=== PATIENT | male | born 1940 | race Caucasian/White ===

== ENCOUNTER → 2017-01-24 11:15 | Outpatient (CLI) | payer MEDICARE, OTHER ==
[2015-08-07 06:43] VITALS: BMI 26.7
[~2017-01-24 11:15] MED LIST: DIOVAN80 MG PO; HYDROCODON-ACE1 EAC7 PO; ZYLOPRIM300 MG PO
== END | disposition home or self-care (01) ==
LOC: D.MRI 11:15
DX: R42 Dizziness and giddiness (principal)

== ENCOUNTER → 2017-03-15 08:24 | Outpatient (CLI) | payer MEDICARE, OTHER ==
[2015-08-07 06:43] VITALS: BMI 26.7
== END | disposition home or self-care (01) ==
LOC: D.US 08:24
DX: I71.4 Abdominal aortic aneurysm, without rupture (principal); I65.23 Occlusion and stenosis of bilateral carotid arteries

== ENCOUNTER 2017-08-25 18:35 | Inpatient (IN) | payer MEDICARE, OTHER ==
[~2017-08-25] VITALS: Ht 177.8 cm; Wt 79.1 kg
[2017-08-25] MEDS ORDERED: HYDROCODON-ACE1 EAC9 PO (18:43)
[2017-08-25] MEDS ORDERED: PERCOCET 10/3251 TA1 PO (18:44)
[2017-08-25] MEDS ORDERED: CATAPRES0.1 MG PO (18:44)
[2017-08-25] MEDS ORDERED: BENICAR40 MG PO (18:44)
[2017-08-25] MEDS ORDERED: FLOMAX0.4 MG PO (18:44)
[2017-08-25] MEDS ORDERED: RESTORIL15 MG PO (18:44)
[2017-08-25 19:32] LABS: BASOPHILS 0.4 % (0-2); EOSINOPHILS 3.1 % (0-7); HEMATOCRIT 39.5 % (42.0-54.0); HEMOGLOBIN 13.4 g/dL (13.5-17.5); IMMATURE GRANULOCYTES 0.3 % (0-5); LYMPHOCYTES 8.5 % (15-50); MCH 35.1 pg (26.0-34.0); MCHC 33.9 g/dL (31.0-37.0); MCV 103.4 fL (80.0-100.0); MEAN PLATELET VOLUME 10.4 fL (7.4-10.4); NEUTROPHILS 74.7 % (40-80); RBC 3.82 10x6/uL (4.20-6.10); RDW 12.2 % (11.5-14.5); WBC 7.9 10x3/uL (4.8-10.8)
[2017-08-25 19:52] LABS: APPEARANCE CLEAR (CLEAR); BILIRUBIN NEGATIVE (NEGATIVE); COLOR DK YELLOW (YELLOW); GLUCOSE NEGATIVE (NEGATIVE); KETONE NEGATIVE (NEGATIVE); NITRITE NEGATIVE (NEGATIVE); PROTEIN NEGATIVE (NEGATIVE); UROBILINOGEN NORMAL (NORMAL)
[2017-08-25 19:54] LABS: AMORPHOUS SEDIMENT <1+ /lpf (NONE SEEN); BACTERIA FEW /hpf (NONE SEEN); RED CELLS - URINE 0-5 /hpf (0-5); WHITE CELLS - URINE 0-5 /hpf (0-5)
[2017-08-25 19:55] LABS: ALBUMIN 3.2 g/dL (3.4-5.0); ALKALINE PHOSPHATASE 68 U/L (46-116); ALT (SGPT) 22 U/L (10-68); AMYLASE - SERUM 52 U/L (25-115); BILIRUBIN - TOTAL 1.24 mg/dL (0.2-1.3); CALC OSMOLALITY 273 mosm/kg (275-300); CARBON DIOXIDE 26.3 mmol/L (21.0-32.0); CHLORIDE - SERUM 102 mmol/L (98-107); CREATININE - SERUM 0.7 mg/dL (0.6-1.3); GLUCOSE 122 mg/dL (74-106); LIPASE 121 U/L (73-393); PLATELET COUNT 182 10x3/uL (130-400); POTASSIUM - SERUM 4.4 mmol/L (3.5-5.1); PROTEIN - SERUM 6.5 g/dL (6.4-8.2); SODIUM 136 mmol/L (136-145); UREA NITROGEN 15 mg/dL (7-18); eGFR NON AFRICAN AMERICAN > 90 mL/min (90-120)
[2017-08-26] VITALS (20 sets, daily range): BP systolic 101–137; BP diastolic 44–68; Ht 177.8 cm; Wt 79.1 kg
[2017-08-26 00:48] LABS: APTT 37.2 SECONDS (22.8-39.4); INR 1.14 (0.85-1.17); PROTIME 14.2 SECONDS (11.6-15.0)
[2017-08-26 01:45] LABS: HEMATOCRIT 34.9 % (42.0-54.0); HEMOGLOBIN 11.8 g/dL (13.5-17.5)
[2017-08-26] MEDS ORDERED: STOOL SOFTENER240 MG (04:01)
[2017-08-26 08:06] LABS: BASOPHILS 0.8 % (0-2); EOSINOPHILS 3.3 % (0-7); HEMATOCRIT 32.8 % (42.0-54.0); HEMOGLOBIN 10.9 g/dL (13.5-17.5); IMMATURE GRANULOCYTES 0.5 % (0-5); LYMPHOCYTES 16.4 % (15-50); MCH 34.5 pg (26.0-34.0); MCHC 33.2 g/dL (31.0-37.0); MCV 103.8 fL (80.0-100.0); MONOCYTES 13.2 % (2-11); NEUTROPHILS 65.8 % (40-80); PLATELET COUNT 213 10x3/uL (130-400); RBC 3.16 10x6/uL (4.20-6.10); RDW 12.2 % (11.5-14.5); WBC 6.3 10x3/uL (4.8-10.8)
[2017-08-26 08:15] LABS: INR 1.13 (0.85-1.17); PROTIME 14.1 SECONDS (11.6-15.0)
[2017-08-26 08:20] LABS: ALKALINE PHOSPHATASE 59 U/L (46-116); ALT (SGPT) 20 U/L (10-68); BILIRUBIN - TOTAL 1.16 mg/dL (0.2-1.3); CALC OSMOLALITY 276 mosm/kg (275-300); CALCIUM 8.9 mg/dL (8.5-10.1); CARBON DIOXIDE 26.2 mmol/L (21.0-32.0); CHLORIDE - SERUM 105 mmol/L (98-107); CREATININE - SERUM 0.7 mg/dL (0.6-1.3); GLUCOSE 101 mg/dL (74-106); POTASSIUM - SERUM 4.3 mmol/L (3.5-5.1); SODIUM 138 mmol/L (136-145); UREA NITROGEN 16 mg/dL (7-18); eGFR NON AFRICAN AMERICAN > 90 mL/min (90-120)
[2017-08-26 11:15] LABS: % SATURATION 32 % (15-55); IRON 94 ug/dl (35-150); TOTAL IRON BIND CAPACITY 293 ug/dl (260-445); UNSAT IRON BIND CAPACITY 199 ug/dl (150-375)
[2017-08-26 11:29] LABS: FERRITIN 302 ng/mL (3-244); LDH 353 U/L (85-227)
[2017-08-26 12:03] LABS: BASOPHILS 0.5 % (0-2); EOSINOPHILS 4.8 % (0-7); HEMOGLOBIN 11.7 g/dL (13.5-17.5); IMMATURE GRANULOCYTES 0.5 % (0-5); LYMPHOCYTES 12.6 % (15-50); MCH 35.3 pg (26.0-34.0); MCHC 34.4 g/dL (31.0-37.0); MCV 102.7 fL (80.0-100.0); MEAN PLATELET VOLUME 10.1 fL (7.4-10.4); MONOCYTES 14.1 % (2-11); NEUTROPHILS 67.5 % (40-80); PLATELET COUNT 195 10x3/uL (130-400); RBC 3.31 10x6/uL (4.20-6.10); RDW 13.4 % (11.5-14.5); WBC 6.3 10x3/uL (4.8-10.8)
[2017-08-26 19:31] LABS: HEMATOCRIT 34.1 % (42.0-54.0); HEMOGLOBIN 11.5 g/dL (13.5-17.5)
[2017-08-27] VITALS (24 sets, daily range): BP systolic 109–142; BP diastolic 58–72
[2017-08-27 03:30] LABS: EOSINOPHILS 4.8 % (0-7); HEMOGLOBIN 11.2 g/dL (13.5-17.5); IMMATURE GRANULOCYTES 0.5 % (0-5); LYMPHOCYTES 15.5 % (15-50); MCH 34.4 pg (26.0-34.0); MCHC 33.9 g/dL (31.0-37.0); MCV 101.2 fL (80.0-100.0); MONOCYTES 9.8 % (2-11); NEUTROPHILS 68.4 % (40-80); PLATELET COUNT 171 10x3/uL (130-400); RBC 3.26 10x6/uL (4.20-6.10); WBC 6.2 10x3/uL (4.8-10.8)
[2017-08-27 03:45] LABS: ALBUMIN 2.9 g/dL (3.4-5.0); ALKALINE PHOSPHATASE 58 U/L (46-116); ALT (SGPT) 21 U/L (10-68); BILIRUBIN - TOTAL 1.06 mg/dL (0.2-1.3); CALC OSMOLALITY 275 mosm/kg (275-300); CALCIUM 8.7 mg/dL (8.5-10.1); CARBON DIOXIDE 22.9 mmol/L (21.0-32.0); CHLORIDE - SERUM 105 mmol/L (98-107); CREATININE - SERUM 0.6 mg/dL (0.6-1.3); GLUCOSE 87 mg/dL (74-106); POTASSIUM - SERUM 4.2 mmol/L (3.5-5.1); PROTEIN - SERUM 5.8 g/dL (6.4-8.2); SODIUM 138 mmol/L (136-145); UREA NITROGEN 14 mg/dL (7-18); eGFR NON AFRICAN AMERICAN > 90 mL/min (90-120)
[2017-08-27 07:21] LABS: FOLATE (FOLIC ACID) - SERUM >20.0 ng/mL (>3.0)
[2017-08-27 07:51] LABS: HEMATOCRIT 35.9 % (42.0-54.0); HEMOGLOBIN 12.1 g/dL (13.5-17.5)
[2017-08-27 13:08] LABS: HEMATOCRIT 36.2 % (42.0-54.0); HEMOGLOBIN 12.3 g/dL (13.5-17.5)
[2017-08-27 19:09] LABS: HEMATOCRIT 33.3 % (42.0-54.0); HEMOGLOBIN 11.5 g/dL (13.5-17.5)
[2017-08-28] VITALS (12 sets, daily range): BP systolic 121–136; BP diastolic 64–72
[2017-08-28 02:32] LABS: HEMATOCRIT 32.1 % (42.0-54.0); HEMOGLOBIN 11.2 g/dL (13.5-17.5)
[2017-08-28 10:56] LABS: BASOPHILS 1.1 % (0-2); EOSINOPHILS 3.9 % (0-7); HEMATOCRIT 36.3 % (42.0-54.0); HEMOGLOBIN 12.6 g/dL (13.5-17.5); IMMATURE GRANULOCYTES 0.3 % (0-5); LYMPHOCYTES 9.9 % (15-50); MCHC 34.7 g/dL (31.0-37.0); MCV 100.8 fL (80.0-100.0); MEAN PLATELET VOLUME 10.3 fL (7.4-10.4); MONOCYTES 10.5 % (2-11); NEUTROPHILS 74.3 % (40-80); PLATELET COUNT 204 10x3/uL (130-400); RDW 12.4 % (11.5-14.5); WBC 6.5 10x3/uL (4.8-10.8)
[2017-08-28 11:25] LABS: ALBUMIN 3.5 g/dL (3.4-5.0); ALKALINE PHOSPHATASE 70 U/L (46-116); ALT (SGPT) 21 U/L (10-68); BILIRUBIN - TOTAL 0.96 mg/dL (0.2-1.3); CALC OSMOLALITY 272 mosm/kg (275-300); CALCIUM 9.1 mg/dL (8.5-10.1); CARBON DIOXIDE 24.9 mmol/L (21.0-32.0); CHLORIDE - SERUM 103 mmol/L (98-107); CREATININE - SERUM 0.7 mg/dL (0.6-1.3); GLUCOSE 103 mg/dL (74-106); POTASSIUM - SERUM 3.6 mmol/L (3.5-5.1); PROTEIN - SERUM 6.8 g/dL (6.4-8.2); SODIUM 137 mmol/L (136-145); UREA NITROGEN 11 mg/dL (7-18); eGFR NON AFRICAN AMERICAN > 90 mL/min (90-120)
[2017-08-28 13:38] LABS: HEMATOCRIT 37.1 % (42.0-54.0); HEMOGLOBIN 12.9 g/dL (13.5-17.5)
[2017-08-28] MEDS ORDERED: FLAGYL500 MG PO (14:51)
[2017-08-28] MEDS ORDERED: LEVAQUIN500 MG PO (14:51)
== END 2017-08-28 17:50 | disposition home or self-care (01) | DRG 378 ==
LOC: D.ER 18:35 → D.CVICU 21:28 → D.EDHOLD 21:28 → D.M2 23:57 → D.CVICU 08-26 01:28
PROVIDERS: Family Medicine; Internal Medicine Gastroenterology; Internal Medicine Nephrology
DX: K57.91 Diverticulosis of intestine, part unspecified, without perforation or abscess with bleeding (principal); D62 Acute posthemorrhagic anemia; I10 Essential (primary) hypertension; J44.9 Chronic obstructive pulmonary disease, unspecified; R55 Syncope and collapse; K59.00 Constipation, unspecified; G47.33 Obstructive sleep apnea (adult) (pediatric); N40.0 Benign prostatic hyperplasia without lower urinary tract symptoms; Z96.652 Presence of left artificial knee joint

== ENCOUNTER → 2018-05-02 10:21 | Outpatient (CLI) | payer MEDICARE, OTHER ==
[2017-08-26 12:21] VITALS: BMI 24.2
[~2018-05-02 10:21] MED LIST changes: +BENICAR40 MG PO; +CATAPRES0.1 MG PO; +FLAGYL500 MG PO; +FLOMAX0.4 MG PO; +HYDROCODON-ACE1 EAC9 PO; +LEVAQUIN500 MG PO; +PERCOCET 10/3251 TA1 PO; +RESTORIL15 MG PO; +STOOL SOFTENER240 MG
== END | disposition home or self-care (01) ==
LOC: D.US 09:00
PROVIDERS: ATTEND Internal Medicine Cardiovascular Disease
DX: I71.4 Abdominal aortic aneurysm, without rupture (principal); I65.23 Occlusion and stenosis of bilateral carotid arteries

== ENCOUNTER → 2018-10-10 12:54 | Outpatient (CLI) | payer MEDICARE, OTHER ==
[2017-08-26 12:21] VITALS: BMI 24.2
== END | disposition home or self-care (01) ==
LOC: D.US 12:54
PROVIDERS: ATTEND Internal Medicine Cardiovascular Disease
DX: R42 Dizziness and giddiness (principal)

== ENCOUNTER → 2019-05-02 10:12 | Outpatient (CLI) | payer MEDICARE, OTHER ==
[2017-08-26 12:21] VITALS: BMI 24.2
== END | disposition home or self-care (01) ==
LOC: D.US 10:00
PROVIDERS: ATTEND Internal Medicine Cardiovascular Disease
DX: I71.4 Abdominal aortic aneurysm, without rupture (principal); I65.23 Occlusion and stenosis of bilateral carotid arteries

== ENCOUNTER → 2020-07-07 10:52 | Outpatient (CLI) | payer MEDICARE, OTHER ==
[2017-08-26 12:21] VITALS: BMI 24.2
== END | disposition home or self-care (01) ==
LOC: D.US 10:30
PROVIDERS: ATTEND Internal Medicine Cardiovascular Disease
DX: I71.4 Abdominal aortic aneurysm, without rupture (principal)